=== PATIENT | female | born 1950 | race American Indian/Alaskan Native ===

== ENCOUNTER 2018-01-13 06:42 | Day surgery (SDC) | payer MEDICARE ==
[2018-01-05 14:24] VITALS: BMI 29.0
[2018-01-13 07:22] VITALS: RESP 18
[2018-01-13] MEDS ORDERED: Propofol 10 mg/ml Inj (20 ML) ONE (08:05)
[2018-01-13] MEDS ORDERED: Sodium Chloride 0.9% 1,000 ML IV SCH (08:30)
[2018-01-13 09:08] VITALS: PULSE 62
[2018-01-13 09:30] VITALS: BP 121/73; O2SAT 96
[2018-01-13 10:11] VITALS: TEMP 98.1
== END 2018-01-13 10:04 | disposition home or self-care (01) ==
LOC: ENDO 06:42
PROVIDERS: ATTEND Specialist
DX: Z12.11 Encounter for screening for malignant neoplasm of colon (principal); D12.3 Benign neoplasm of transverse colon; K63.5 Polyp of colon; K57.30 Diverticulosis of large intestine without perforation or abscess without bleeding; K64.8 Other hemorrhoids
CPT/HCPCS: 45380; 88305; J2001; J2704; J7040 ×2